=== PATIENT | female | born 1945 | race Caucasian/White ===

== ENCOUNTER 2023-06-26 11:28 | Inpatient (IN) | payer OTHER, MEDICARE ==
[2023-06-26] MEDS ORDERED: Ondansetron PF 4 MG/2 ML Vial ONE (12:11)
[2023-06-26] MEDS ORDERED: Morphine 4 MG/ML VIAL ONE (12:11)
[2023-06-26 13:16] LABS: #Monocytes 0.6 thou/uL (0.11-0.59); #Neutrophils 6.5 thou/uL (1.40-6.50); %Basophils 0.4 % (0.0-1.0); %Eosinophils 0.3 % (0.0-10.0); %Lymphocytes 9.3 % (21.0-51.0); %Monocytes 7.3 % (0.0-10.0); %Neutrophils 82.3 % (42.0-75.0); Hematocrit 34.5 % (36.0-47.0); Hemoglobin 11.7 g/dL (12.0-16.0); Mean Corpuscular HGB CONC 33.9 g/dL (32.0-36.0); Mean Corpuscular Hemoglobin 30.8 pg (27.0-31.0); Mean Corpuscular Volume 90.8 fl (78.0-98.0); Mean Platelet Volume 10.6 fL (7.4-10.4); Platelet Count 239 10x3/uL (130-400); RBC Distribution Width 12.5 % (11.5-14.5); White Blood Cell (WBC) Count 7.9 10x3/uL (4.8-10.8)
[2023-06-26 13:28] LABS: ALT (SGPT) 12 U/L (8-55); AST (SGOT) 21 U/L (5-34); Albumin 4.8 g/dL (3.4-4.8); Alkaline Phosphatase 83 U/L (40-110); Anion Gap 13 mmol/L (10-20); BUN (Urea Nitrogen) 22 mg/dL (9.8-20.1); Bilirubin, Total 0.9 mg/dL (0.2-1.2); Calc. Creatinine Clearance 0 mL/min (70-130); Calcium 9.6 mg/dL (7.8-10.44); Carbon Dioxide 26 mmol/L (23-31); Chloride 103 mmol/L (98-107); Estimated GFR 77; Globulin 2.5 g/dL (2.4-3.5); Glucose 129 mg/dL (83-110); Potassium 3.9 mmol/L (3.5-5.1); Protein, Total 7.3 g/dL (5.8-8.1); Sodium 138 mmol/L (136-145)
[2023-06-26 13:29] LABS: PTT 26.9 sec (22.9-36.1); Prothrombin Time 14.1 sec (12.0-14.7)
[2023-06-26 13:32] LABS: Troponin I 0.023 ng/mL (< 0.028)
[2023-06-26] MEDS ORDERED: TETANUS, DIPHTHERIA TOX,ADULT (TDVAX) 0.5 ML VIAL IM ONE (14:50)
[2023-06-26] MEDS ORDERED: Morphine 2 MG/ML VIAL SLOW IVP PRN (14:50)
[2023-06-26] MEDS ORDERED: traMADol HCl 50 MG TAB PO PRN (14:50)
[2023-06-26] MEDS ORDERED: Ipratropium/Albuterol 3 ML NEB NEB PRN (14:50)
[2023-06-26] MEDS ORDERED: hydrALAZINE 20 MG/ML VIAL SLOW IVP PRN (14:50)
[2023-06-26] MEDS ORDERED: Ondansetron ODT 4 MG TAB PO PRN (14:50)
[2023-06-26] MEDS ORDERED: Acetaminophen 325 MG TAB ONE (17:50)
[2023-06-26] MEDS ORDERED: Boostrix 0.5 ML (Tdap) VIAL (>/=7 yrs of age) ONE (17:51)
[2023-06-26] MEDS: Acetaminophen 325 MG TAB PO SCH ×2 (17:55→23:16)
[2023-06-26] MEDS: Sodium Chloride 0.9% 1,000 ML IV SCH (19:18)
[2023-06-26] MEDS: Famotidine 20 MG TAB PO SCH (23:17)
[2023-06-27] MEDS: Acetaminophen 325 MG TAB PO SCH (04:50)
[2023-06-27] MEDS: Sodium Chloride 0.9% 1,000 ML IV SCH ×2 (04:50→20:25)
[2023-06-27 04:58] LABS: #Monocytes 0.9 thou/uL (0.11-0.59); #Neutrophils 5.4 thou/uL (1.40-6.50); %Basophils 0.5 % (0.0-1.0); %Eosinophils 0.3 % (0.0-10.0); %Lymphocytes 17.4 % (21.0-51.0); %Monocytes 11.1 % (0.0-10.0); %Neutrophils 70.3 % (42.0-75.0); Hematocrit 26.9 % (36.0-47.0); Hemoglobin 8.9 g/dL (12.0-16.0); Mean Corpuscular HGB CONC 33.1 g/dL (32.0-36.0); Mean Corpuscular Hemoglobin 30.5 pg (27.0-31.0); Mean Corpuscular Volume 92.1 fl (78.0-98.0); Mean Platelet Volume 10.6 fL (7.4-10.4); Platelet Count 190 10x3/uL (130-400); RBC Distribution Width 12.5 % (11.5-14.5); Red Blood Cell (RBC) Count 2.92 mill/uL (4.20-5.40); White Blood Cell (WBC) Count 7.7 10x3/uL (4.8-10.8)
[2023-06-27] MEDS: Acetaminophen 500 MG TAB PO SCH ×3 (09:47→20:26)
[2023-06-27] MEDS: Famotidine 20 MG TAB PO SCH ×2 (09:48→20:27)
[2023-06-27] MEDS ORDERED: LevoFLOXacin 500 mg/D5W 500 MG in Premix 1 BAG IVPB SCH (13:00)
[2023-06-27] MEDS ORDERED: Clindamycin/D5W 900 mg/50 ml Premix Bag ONE (16:57)
[2023-06-27] MEDS ORDERED: fentaNYL PF 100 MCG/2 ML SYRINGE ONE (16:58)
[2023-06-27] MEDS ORDERED: Dexamethasone 20 MG/5 ML VIAL ONE (17:11)
[2023-06-27] MEDS ORDERED: Rocuronium Bromide 10 MG/ML (10ML VIAL) ONE (17:11)
[2023-06-27] MEDS ORDERED: Ondansetron PF 4 MG/2 ML Vial ONE (17:11)
[2023-06-27] MEDS ORDERED: Glycopyrrolate 0.2 MG/ML 5 ML SYRINGE ONE (17:11)
[2023-06-27] MEDS ORDERED: PROPOFOL 200 MG/20 ML VIAL ONE (17:11)
[2023-06-27] MEDS ORDERED: Lidocaine 1% PF 5 ML VIAL ONE (17:11)
[2023-06-27] MEDS ORDERED: NEOSTIGMINE 3 MG/3 ML SYR 3 MG/3 ML SYRINGE ONE (17:11)
[2023-06-27] MEDS ORDERED: PACU-Morphine 4MG/ML VIAL SLOW IVP PRN (18:21)
[2023-06-27] MEDS ORDERED: Ondansetron HCl/PF 4 MG/2 ML Vial IVP PRN (18:21)
[2023-06-27] MEDS ORDERED: Promethazine HCl 25 MG/ML VIAL IM PRN (18:21)
[2023-06-27] MEDS ORDERED: Morphine Sulfate 2 MG/ML SYRINGE SLOW IVP PRN (18:21)
[2023-06-27] MEDS ORDERED: HYDROmorphone 2 MG/ML VIAL SLOW IVP PRN (18:21)
[2023-06-28] MEDS: Clindamycin/D5W 900 MG in Premix 1 BAG IVPB SCH ×5 (03:08→19:19)
[2023-06-28] MEDS: Acetaminophen 500 MG TAB PO SCH ×4 (03:17→19:53)
[2023-06-28 05:45] LABS: #Monocytes 0.5 thou/uL (0.11-0.59); #Neutrophils 6.7 thou/uL (1.40-6.50); %Basophils 0.1 % (0.0-1.0); %Monocytes 6.3 % (0.0-10.0); %Neutrophils 88.2 % (42.0-75.0); Hematocrit 23.2 % (36.0-47.0); Hemoglobin 7.8 g/dL (12.0-16.0); Mean Corpuscular HGB CONC 33.6 g/dL (32.0-36.0); Mean Corpuscular Hemoglobin 30.2 pg (27.0-31.0); Mean Corpuscular Volume 89.9 fl (78.0-98.0); Mean Platelet Volume 10.8 fL (7.4-10.4); Platelet Count 159 10x3/uL (130-400); RBC Distribution Width 12.4 % (11.5-14.5); Red Blood Cell (RBC) Count 2.58 mill/uL (4.20-5.40); White Blood Cell (WBC) Count 7.6 10x3/uL (4.8-10.8)
[2023-06-28] MEDS ORDERED: Losartan 25 MG TAB PO SCH (09:00)
[2023-06-28] MEDS: Ascorbic Acid 500 mg Chewable Tablet PO SCH ×2 (09:10→20:48)
[2023-06-28] MEDS: Famotidine 20 MG TAB PO SCH ×2 (09:10→20:48)
[2023-06-28] MEDS: Flecainide 50 MG TAB PO SCH ×2 (10:39→20:48)
[2023-06-28] MEDS: Ferrous Sulfate 325 MG TAB PO SCH (18:09)
[2023-06-28] MEDS: Sodium Chloride 0.9% 1,000 ML IV SCH (19:50)
[2023-06-28] MEDS ORDERED: Senokot S 8.6-50 MG TAB PO SCH (21:00)
[2023-06-29] MEDS: Acetaminophen 500 MG TAB PO SCH ×4 (04:06→21:00)
[2023-06-29 06:15] LABS: #Monocytes 0.9 thou/uL (0.11-0.59); #Neutrophils 5.3 thou/uL (1.40-6.50); %Basophils 0.3 % (0.0-1.0); %Eosinophils 0.1 % (0.0-10.0); %Lymphocytes 15.2 % (21.0-51.0); %Monocytes 11.8 % (0.0-10.0); %Neutrophils 72.2 % (42.0-75.0); Hematocrit 21.5 % (36.0-47.0); Hemoglobin 7.3 g/dL (12.0-16.0); Mean Corpuscular Hemoglobin 30.8 pg (27.0-31.0); Mean Corpuscular Volume 90.7 fl (78.0-98.0); Mean Platelet Volume 10.2 fL (7.4-10.4); Platelet Count 179 10x3/uL (130-400); RBC Distribution Width 12.9 % (11.5-14.5); Red Blood Cell (RBC) Count 2.37 mill/uL (4.20-5.40); White Blood Cell (WBC) Count 7.4 10x3/uL (4.8-10.8)
[2023-06-29] MEDS ORDERED: Polyethylene Glycol 3350 17 GM Packet PO SCH (09:00)
[2023-06-29] MEDS ORDERED: FLU VACC QS2023(65UP)/MF59C/PF 60 MCG/0.5 ML SYRINGE IM ONE (09:00)
[2023-06-29] MEDS: Ferrous Sulfate 325 MG TAB PO SCH ×2 (09:19→16:55)
[2023-06-29] MEDS: Famotidine 20 MG TAB PO SCH ×2 (09:19→21:00)
[2023-06-29] MEDS: Ascorbic Acid 500 mg Chewable Tablet PO SCH ×2 (09:19→21:00)
[2023-06-29] MEDS: Polyethylene Glycol 3350 17 GM Packet PO SCH (09:20)
[2023-06-29] MEDS: Flecainide 50 MG TAB PO SCH ×2 (09:20→21:00)
[2023-06-29] MEDS: Losartan 25 MG TAB PO SCH (09:20)
[2023-06-29] MEDS: Aspirin 81 mg Enteric Coated Tablet PO SCH ×2 (09:20→21:00)
[2023-06-29] MEDS: Senokot S 8.6-50 MG TAB PO SCH ×2 (09:20→19:46)
[2023-06-30] MEDS: Acetaminophen 500 MG TAB PO SCH ×4 (04:16→21:24)
[2023-06-30] MEDS: Mag-Al 1200 mg/1200 mg/30 ML UDCUP PO PRN (05:28)
[2023-06-30 05:40] LABS: #Eosinphils 0.1 thou/uL (0.0-0.7); #Monocytes 0.8 thou/uL (0.11-0.59); #Neutrophils 4.7 thou/uL (1.40-6.50); %Basophils 0.6 % (0.0-1.0); %Eosinophils 1.9 % (0.0-10.0); %Lymphocytes 16.2 % (21.0-51.0); %Monocytes 11.1 % (0.0-10.0); %Neutrophils 69.6 % (42.0-75.0); Hematocrit 27.5 % (36.0-47.0); Hemoglobin 9.4 g/dL (12.0-16.0); Mean Corpuscular HGB CONC 34.2 g/dL (32.0-36.0); Mean Corpuscular Hemoglobin 30.3 pg (27.0-31.0); Mean Corpuscular Volume 88.7 fl (78.0-98.0); Mean Platelet Volume 10.3 fL (7.4-10.4); Platelet Count 212 10x3/uL (130-400); RBC Distribution Width 13.2 % (11.5-14.5); White Blood Cell (WBC) Count 6.7 10x3/uL (4.8-10.8)
[2023-06-30] MEDS: Flecainide 50 MG TAB PO SCH ×2 (08:23→20:53)
[2023-06-30] MEDS: Aspirin 81 mg Enteric Coated Tablet PO SCH ×2 (08:23→20:52)
[2023-06-30] MEDS: Ascorbic Acid 500 mg Chewable Tablet PO SCH ×2 (08:23→20:52)
[2023-06-30] MEDS: Ferrous Sulfate 325 MG TAB PO SCH ×2 (08:23→16:16)
[2023-06-30] MEDS: Losartan 25 MG TAB PO SCH (08:24)
[2023-06-30] MEDS: Famotidine 20 MG TAB PO SCH ×2 (08:24→20:52)
[2023-06-30] MEDS: Polyethylene Glycol 3350 17 GM Packet PO SCH (09:25)
[2023-06-30] MEDS: Senokot S 8.6-50 MG TAB PO SCH ×2 (09:25→20:52)
[2023-07-01] MEDS: Acetaminophen 500 MG TAB PO SCH ×4 (04:26→21:02)
[2023-07-01] MEDS: Ascorbic Acid 500 mg Chewable Tablet PO SCH ×2 (07:58→21:04)
[2023-07-01] MEDS: Ferrous Sulfate 325 MG TAB PO SCH ×2 (07:58→16:06)
[2023-07-01] MEDS: Aspirin 81 mg Enteric Coated Tablet PO SCH ×2 (07:58→21:01)
[2023-07-01] MEDS: Flecainide 50 MG TAB PO SCH ×2 (07:59→21:03)
[2023-07-01] MEDS: Senokot S 8.6-50 MG TAB PO SCH ×2 (07:59→21:01)
[2023-07-01] MEDS: Famotidine 20 MG TAB PO SCH ×2 (07:59→21:02)
[2023-07-01] MEDS: Mag-Al 1200 mg/1200 mg/30 ML UDCUP PO PRN (17:59)
[2023-07-02] MEDS: Acetaminophen 500 MG TAB PO SCH ×2 (04:18→09:10)
[2023-07-02] MEDS ORDERED: hydrALAZINE 20 MG/ML VIAL SLOW IVP SCH (05:30)
[2023-07-02] MEDS ORDERED: Losartan 25 MG TAB PO SCH (09:00)
[2023-07-02] MEDS: Flecainide 50 MG TAB PO SCH (09:07)
[2023-07-02] MEDS: Aspirin 81 mg Enteric Coated Tablet PO SCH (09:07)
[2023-07-02] MEDS: Senokot S 8.6-50 MG TAB PO SCH (09:08)
[2023-07-02] MEDS: Ferrous Sulfate 325 MG TAB PO SCH (09:10)
[2023-07-02] MEDS: Ascorbic Acid 500 mg Chewable Tablet PO SCH (09:11)
[2023-07-02 15:48] VITALS: BP 116/69; TEMP 98.1
== END 2023-07-02 17:02 | DRG 481 ==
LOC: ERS 11:28 → ERHOLD 14:52 → SJJU 19:46
PROVIDERS: ADMIT Specialist; ATTEND Specialist
PROC: 0QS604Z Reposition Right Upper Femur with Internal Fixation Device, Open Approach (ICD-10-PCS; principal; 2023-06-27)
PROC: 30233N1 Transfusion of Nonautologous Red Blood Cells into Peripheral Vein, Percutaneous Approach (ICD-10-PCS; 2023-06-29)
DX: S72.141A Displaced intertrochanteric fracture of right femur, initial encounter for closed fracture (principal); D62 Acute posthemorrhagic anemia; I48.91 Unspecified atrial fibrillation; I10 Essential (primary) hypertension; E78.00 Pure hypercholesterolemia, unspecified; W19.XXXA Unspecified fall, initial encounter; K59.00 Constipation, unspecified; Z98.890 Other specified postprocedural states; Z88.0 Allergy status to penicillin; Y92.89 Other specified places as the place of occurrence of the external cause
CPT/HCPCS: 36415; 36430; 70450; 71045; 72125; 72170; 80053; 83605; 84484; 85025; 85610; 85730; 86850; 86900; 86901; 90714; 90715; 96374; 96375; C1713; J0360; J1100; J2270; J2405; J2704; J3490; J7050; P9016

== ENCOUNTER 2024-03-04 10:49 | Outpatient (CLI) | payer MEDICARE | END 2024-03-04 10:50 | disposition home or self-care (01) | LOC: BICCT 10:49 | PROVIDERS: ATTEND Orthopaedic Surgery | DX: S72.141K Displaced intertrochanteric fracture of right femur, subsequent encounter for closed fracture with nonunion (principal); M25.551 Pain in right hip ==

== ENCOUNTER 2024-03-17 08:13 | Inpatient (IN) | payer MEDICARE ==
[2024-03-14 13:33] VITALS: BMI 29.7
[2024-03-17] MEDS ORDERED: Clindamycin/D5W 900 mg/50 ml Premix Bag ONE (12:24)
[2024-03-17] MEDS ORDERED: Lidocaine 1% PF 5 ML VIAL ONE (12:25)
[2024-03-17] MEDS ORDERED: PROPOFOL 20 ML ONE ×2 (12:25→13:39)
[2024-03-17] MEDS ORDERED: fentaNYL 50 mcg/mL 1 mL Vial ONE ×2 (12:25→14:18)
[2024-03-17] MEDS ORDERED: Rocuronium Bromide 10 MG/ML (10ML VIAL) ONE (12:27)
[2024-03-17] MEDS ORDERED: ePHEDrine Sulfate 50 MG/10 ML VIAL ONE (13:04)
[2024-03-17] MEDS ORDERED: SUGAMMADEX SODIUM 200 MG/2 ML VIAL ONE (13:28)
[2024-03-17] MEDS ORDERED: Ondansetron PF 4 MG/2 ML Vial ONE (13:28)
== END 2024-03-17 15:38 | disposition home or self-care (01) | DRG 482 ==
LOC: SURG A 10:07 → EDSTATUS 13:47
PROVIDERS: ADMIT Orthopaedic Surgery; ATTEND Orthopaedic Surgery
PROC: 0QH604Z Insertion of Internal Fixation Device into Right Upper Femur, Open Approach (ICD-10-PCS; principal; 2024-03-17)
PROC: 0QP604Z Removal of Internal Fixation Device from Right Upper Femur, Open Approach (ICD-10-PCS; 2024-03-17)
PROC: 3E033XZ Introduction of Vasopressor into Peripheral Vein, Percutaneous Approach (ICD-10-PCS; 2024-03-17)
DX: T84.84XA Pain due to internal orthopedic prosthetic devices, implants and grafts, initial encounter (principal); M19.90 Unspecified osteoarthritis, unspecified site; S72.141D Displaced intertrochanteric fracture of right femur, subsequent encounter for closed fracture with routine healing; I48.91 Unspecified atrial fibrillation; E78.00 Pure hypercholesterolemia, unspecified; Z98.890 Other specified postprocedural states; Z88.0 Allergy status to penicillin
CPT/HCPCS: 93005; 93010; C1713; J2405; J2704; J3010; J3490

== ENCOUNTER 2024-06-22 08:16 | Emergency (ER) | payer MEDICARE ==
[2024-06-22 09:15] LABS: #Basophils 0.03 10x3/uL (0.0-0.2); %Basophils 0.5 % (0.0-1.0); %Eosinophils 0.6 % (0.0-10.0); %Monocytes 8.2 % (0.0-10.0); %Neutrophils 75.4 % (42.0-75.0); Hematocrit 41.8 % (36.0-47.0); Hemoglobin 13.8 g/dL (12.0-16.0); Mean Corpuscular Hemoglobin 30.5 pg (27.0-31.0); Mean Corpuscular Volume 92.5 fL (78.0-98.0); Mean Platelet Volume 9.7 fL (7.4-10.4); Platelet Count 256 10x3/uL (130-400); RBC Distribution Width 12.4 % (11.5-14.5); Red Blood Cell (RBC) Count 4.52 mill/uL (4.20-5.40)
[2024-06-22] MEDS ORDERED: Metoprolol Tartrate 5 MG (5 mL) VIAL ONE (09:16)
[2024-06-22 09:31] LABS: ALT (SGPT) 15 U/L (8-55); AST (SGOT) 21 U/L (5-34); Albumin 4.2 g/dL (3.4-4.8); Alkaline Phosphatase 105 U/L (40-110); Anion Gap 14 mmol/L (10-20); BUN (Urea Nitrogen) 19 mg/dL (9.8-20.1); Bilirubin, Total 1.2 mg/dL (0.2-1.2); Calc. Creatinine Clearance 0 mL/min (70-130); Calcium 10.6 mg/dL (7.8-10.44); Carbon Dioxide 28 mmol/L (23-31); Chloride 102 mmol/L (98-107); Estimated GFR 73; Globulin 3.5 g/dL (2.4-3.5); Glucose 112 mg/dL (83-110); Potassium 3.8 mmol/L (3.5-5.1); Protein, Total 7.7 g/dL (5.8-8.1); Sodium 140 mmol/L (136-145)
[2024-06-22 09:38] LABS: Troponin I Less than 0.010 ng/mL (< 0.028)
[2024-06-22] MEDS ORDERED: hydrALAZINE 20 MG/ML VIAL ONE (09:58)
== END 2024-06-22 12:04 | disposition home or self-care (01) ==
LOC: ERS 08:16
DX: I48.91 Unspecified atrial fibrillation (principal); I10 Essential (primary) hypertension; E78.00 Pure hypercholesterolemia, unspecified; Z79.82 Long term (current) use of aspirin; Z79.899 Other long term (current) drug therapy
CPT/HCPCS: 71045; 80053; 83880; 84484; 85025; 85730; 93005; J0360; 36415; 96374